=== PATIENT | female | born 1985 | race Caucasian/White ===

== ENCOUNTER → 2016-11-14 | Outpatient (CLI) | payer BC ==
[~2016-11-14] MED LIST: BCPILLS PO; OMEG10007 PO
== END | disposition home or self-care (01) ==
LOC: C.PAPS 12:11
PROVIDERS: ATTEND Obstetrics & Gynecology
DX: Z01.419 Encounter for gynecological examination (general) (routine) without abnormal findings (principal); N87.1 Moderate cervical dysplasia

== ENCOUNTER 2017-01-23 21:02 | Emergency (ER) | payer BC ==
[~2017-01-23] VITALS: Ht 162.6 cm; Wt 59.2 kg
[2017-01-23 21:06] VITALS: TEMP 36.7; Ht 162.6 cm; Wt 59.2 kg
[2017-01-23] MEDS ORDERED: BCPILLS PO (21:25)
[2017-01-23] MEDS ORDERED: OMEG10007 PO (21:25)
[2017-01-23] MEDS ORDERED: RABIES VACCINE (IMOVAX) HUMAN DIPL CELL 2.5 INTER.UNIT/ML SYR IM. ONE (21:30)
[2017-01-23] MEDS ORDERED: RABIES IMMUNE GLOBULIN (HUMAN) 150 INTER.UNIT/ML 2 ML VIAL IM. ONE (21:30)
--- NOTE | 2017-01-23 22:03 | EMERGENCY ROOM VISIT NOTE ---
History First contact with patient: 21:20 Chief Complaint: RABIES VACCINE Stated Complaint: BAT EXPOSURE History of Present Illness The patient is a 31 year old female who presents to the Emergency Room who presents to the Emergency Room for a rabies postexposure prophylaxis series. The patient and spouse awakened in their bedroom with a bat flying around in the house. They do not recall feeling anything in the bed with them. Review of Systems 10 system review was performed and was negative except for pertinent positives and negatives as indicated in history of present illness Past Medical/Surgical History Medical Problems: (1) No significant past medical history Surgical Problems: (1) No history of previous surgery Family History FH: cancer FH: diabetes mellitus FH: heart disease Social History Smoking Status: Never Smoker Current/Historical Medications Scheduled Control Pills ( Control Pills), 1 TAB PO DAILY Fish Oil ([place]-3), 1 CAP PO DAILY Allergies Coded Allergies: No Known Allergies (Unverified , 01/23/17) Physical Exam Vital Signs Date Time Temp Pulse Resp B/P (MAP) Pulse Ox O2 Delivery O2 Flow Rate FiO2 01/23/17 21:06 36.7 73 16 136/91 98 Room Air Physical Exam CONSTITUTIONAL: Healthy and well nourished. HEENT: Normocephalic, atraumatic. Pupils equal, round and reactive. No scleral icterus or conjunctival injection. INTEGUMENTARY: No rash or other significant dermatologic conditions noted. NEUROLOGIC: No focal neurologic deficits noted. Medical Decision & Procedures Medications Administered Medications (Trade) Dose Ordered Sig/Pilar Route Start Time Stop Time Status Last Admin Dose Admin Rabies Vaccine Human Diploid Cell (Imovax Rabies) 2.5 interunit ONCE ONCE IM. 01/23/17 21:30 01/23/17 21:32 DC 01/23/17 21:48 2.5 INTERUNIT Rabies Immune Globulin (Imogam Rabies Inj) 1,184 interunit ONCE ONCE IM. 01/23/17 21:30 01/23/17 21:32 DC 01/23/17 21:47 1,184 INTERUNIT ED Course Patient history and physical exam were performed. Nurse's notes were reviewed. Vital signs were reviewed and were normal. The patient was administered Imovax IM and HRIG 20 units per kilogram IM without adverse reaction. She will return on days 3, 7 and 14 for subsequent Imovax immunizations. She was instructed to return sooner for any adverse reaction. The patient was happy with plan of care, and denied any significant discomfort at the time of discharge. Medical Decision Impression Primary Impression: Need for prophylactic vaccination against rabies Departure Information Dispostion Home / Self-Care Forms HOME CARE DOCUMENTATION FORM, IMPORTANT VISIT INFORMATION Patient Instructions My [facility] Additional Instructions Return on the following days for your remaining Imovax immunizations: Day 3 (01/26) Day 7 (01/30) Day 14 (02/06)
[2017-01-23 22:27] VITALS: BP 127/87; PULSE 65; O2SAT 98
== END 2017-01-23 22:28 | disposition home or self-care (01) ==
LOC: C.EDB 21:03 → C.EDD 22:28
DX: Z20.3 Contact with and (suspected) exposure to rabies (principal); Z23 Encounter for immunization; Z83.3 Family history of diabetes mellitus

== ENCOUNTER 2017-01-26 07:41 | Emergency (ER) | payer BC ==
[~2017-01-26] VITALS: Ht 162.6 cm; Wt 59.0 kg
[2017-01-26 07:45] VITALS: TEMP 36.6; Ht 162.6 cm; Wt 59.0 kg
[2017-01-26] MEDS ORDERED: RABIES VACCINE (IMOVAX) HUMAN DIPL CELL 2.5 INTER.UNIT/ML SYR IM. ONE ×2 (08:00→14:11)
--- NOTE | 2017-01-26 15:00 | EMERGENCY ROOM VISIT NOTE ---
ED Visit Note First contact with patient: 07:50 Chief complaint: Rabies exposure HPI: This 31-year-old white female presents for her next injection of Imovax. This is injection # 2. patient denies any rashes or problems from the last injection. No shortness of breath. Pain is 0/10. Review of systems: Unchanged from previous exam. Surgical history: Unchanged from previous exam. Medical history: Unchanged from previous exam Current medications: Unchanged from previous exam Allergies: Unchanged from previous exam Social history: Unchanged from previous exam. She is a nurse at [employer]. Vitals: Afebrile. Reviewed and filed in patient's chart General: Well-developed, well-nourished, young white female, in no acute distress. They are sitting in a chair. Alert and oriented. Skin:Warm and dry with good turgor. No rashes or lesions. No ecchymosis or erythema. The patient is not diaphoretic. No abrasions. Musculoskeletal: Full motion of the shoulder without discomfort. Impression: Rabies exposure. Plan: Patient was educated regarding today's findings. She was given Imovax 1 ML IM. Patient was monitored for 20 minutes. No adverse changes were noted. Patient was discharged with instructions to follow-up at the next scheduled injection. Tylenol as needed for any discomfort. Benadryl as needed for any itch. Return to the ER for any signs of allergic reaction. Current/Historical Medications Scheduled Control Pills ( Control Pills), 1 TAB PO DAILY Fish Oil ([place]-3), 1 CAP PO DAILY Allergies Coded Allergies: No Known Allergies (Unverified , 01/23/17) Vital Signs Date Time Temp Pulse Resp B/P (MAP) Pulse Ox O2 Delivery O2 Flow Rate FiO2 01/26/17 07:45 36.6 66 18 116/74 99 Room Air Medications Administered Medications (Trade) Dose Ordered Sig/Pilar Route Start Time Stop Time Status Last Admin Dose Admin Rabies Vaccine Human Diploid Cell (Imovax Rabies) 2.5 interunit ONCE ONCE IM. 01/26/17 08:00 01/26/17 08:01 DC 01/26/17 14:19 2.5 INTERUNIT Departure Information Impression Primary Impression: Need for rabies vaccination Dispostion Home / Self-Care Forms BENADRYL USE, WORK / SCHOOL INSTRUCTIONS, HOME CARE DOCUMENTATION FORM, MOTRIN USE, TYLENOL USE , IMPORTANT VISIT INFORMATION Patient Instructions My [facility] Additional Instructions Follow-up in 4 days for your next rabies vaccination Tylenol and Motrin every 6 hours as needed for discomfort Benadryl every 6 hours as needed for itching or redness Return to the ED for any other concerns, or follow-up with your PCP
[2017-01-26 15:09] VITALS: BP 123/91; PULSE 62; O2SAT 98
== END 2017-01-26 15:11 | disposition home or self-care (01) ==
LOC: C.EDB 07:42 → C.EDA 15:11
DX: Z23 Encounter for immunization (principal); Z20.3 Contact with and (suspected) exposure to rabies; Z79.3 Long term (current) use of hormonal contraceptives

== ENCOUNTER 2017-01-30 17:17 | Emergency (ER) | payer BC ==
[~2017-01-30] VITALS: Ht 162.6 cm; Wt 58.7 kg
[2017-01-30 17:21] VITALS: TEMP 36.5; Ht 162.6 cm; Wt 58.7 kg
[2017-01-30] MEDS ORDERED: RABIES VACCINE (IMOVAX) HUMAN DIPL CELL 2.5 INTER.UNIT/ML SYR IM. ONE (17:45)
[2017-01-30 18:21] VITALS: BP 115/72; PULSE 61; O2SAT 99
--- NOTE | 2017-01-31 20:42 | EMERGENCY ROOM VISIT NOTE ---
ED Visit Note First contact with patient: 17:23 CHIEF COMPLAINT: Rabies vaccination. HISTORY OF PRESENT ILLNESS: Ms. Acharya is a 31-year-old white female who ambulates into the ED requesting her third rabies vaccination. Patient reports she has had no reactions to her previous vaccination and she is feeling well today and denies fevers, chills, sweats, headaches, neck pain, joint pain, shortness of breath, cough, upper respiratory tract symptoms, abdominal pain, nausea, vomiting. REVIEW OF SYSTEMS: As noted above in History of Present Illness. PHYSICAL EXAM: Vital Signs: Date Time Temp Pulse Resp B/P (MAP) Pulse Ox O2 Delivery O2 Flow Rate FiO2 01/30/17 18:21 61 20 115/72 99 01/30/17 17:21 36.5 58 20 119/79 99 Room Air GENERAL: 31-year-old white female in no acute distress, nontoxic-appearing, afebrile and hemodynamically stable. NEUROLOGICAL: Awake, alert and oriented to person, place and time. Answering questions appropriately and following commands. EMERGENCY DEPARTMENT COURSE: Patient is assessed as noted above. Patient was given 2.5 IU of rabies vaccination IM. Patient was educated about today's findings and instructed on her treatment plan ; she verbalized understanding and agreement with this plan. CLINICAL IMPRESSION: Post exposure rabies prophylaxis. DISPOSITION: Patient discharged to home in stable condition; prior to discharge he was reassessed and reported that he felt the same.. PLAN: Patient was educated on symptoms of rabies and side effect of rabies immunizations. Patient was encouraged to continue her current schedule for her last rabies immunization. Patient was encouraged to return the ED for any symptoms of rabies or side effects of rabies immunizations.
== END 2017-01-30 18:23 | disposition home or self-care (01) ==
LOC: C.EDB 17:18 → C.EDD 18:23
DX: Z23 Encounter for immunization (principal); Z20.3 Contact with and (suspected) exposure to rabies

== ENCOUNTER 2017-02-07 16:54 | Emergency (ER) | payer BC ==
[~2017-02-07] VITALS: Ht 160 cm; Wt 57.7 kg
[2017-02-07 16:58] VITALS: TEMP 36.6; Ht 160 cm; Wt 57.7 kg
[2017-02-07] MEDS ORDERED: RABIES VACCINE (IMOVAX) HUMAN DIPL CELL 2.5 INTER.UNIT/ML SYR IM. ONE (17:30)
[2017-02-07 17:52] VITALS: BP 114/78; PULSE 65; O2SAT 98
--- NOTE | 2017-02-07 19:55 | EMERGENCY ROOM VISIT NOTE ---
History First contact with patient: 17:16 Chief Complaint: RABIES VACCINE REPEAT VISIT Stated Complaint: RABIES VACCINE REPEAT History of Present Illness The patient is a 31 year old female who presents to the Emergency Room for her fourth and final Imovax injection after being exposed to a bat in her home. The patient denies any adverse reactions from prior injections. Review of Systems 6 system review was performed and was negative except for pertinent positives and negatives as indicated in history of present illness Past Medical/Surgical History Medical Problems: (1) No significant past medical history Surgical Problems: (1) No history of previous surgery Family History FH: cancer FH: diabetes mellitus FH: heart disease Social History Smoking Status: Never Smoker Alcohol Use: occasionally Marital Status: Housing Status: lives with family Occupation Status: employed Current/Historical Medications Scheduled Control Pills ( Control Pills), 1 TAB PO DAILY Fish Oil ([place]-3), 1 CAP PO DAILY Physical Exam Vital Signs Date Time Temp Pulse Resp B/P (MAP) Pulse Ox O2 Delivery O2 Flow Rate FiO2 02/07/17 17:52 65 15 114/78 98 02/07/17 16:58 36.6 65 15 114/78 98 Room Air Pain Rating (0-10): 0 Physical Exam CONSTITUTIONAL: Healthy and well nourished. HEENT: No scleral icterus or conjunctival injection. INTEGUMENTARY: No rash or other significant dermatologic conditions noted. NEUROLOGIC: No focal neurologic deficits noted. Medical Decision & Procedures Medications Administered Medications (Trade) Dose Ordered Sig/Pilar Route Start Time Stop Time Status Last Admin Dose Admin Rabies Vaccine Human Diploid Cell (Imovax Rabies) 2.5 interunit ONCE ONCE IM. 02/07/17 17:30 02/07/17 17:34 DC 02/07/17 17:35 2.5 INTERUNIT ED Course Patient history and physical exam were performed. Nurse's notes were reviewed. Vital signs were reviewed and normal. The patient was administered Imovax IM without adverse reaction. The patient was advised that if she has any potential rabies exposure in the future, she should advise her healthcare provider that she has already undergone this immunization series. The patient was happy with plan of care, and denied any pain at the time of discharge. Medical Decision Blood Pressure Screening Patient's blood pressure: Normal blood pressure Impression Primary Impression: Need for prophylactic vaccination against rabies Departure Information Dispostion Home / Self-Care Condition GOOD Forms HOME CARE DOCUMENTATION FORM, IMPORTANT VISIT INFORMATION Patient Instructions My [facility] Additional Instructions If you have any potential rabies exposure in the future, advise your healthcare provider that you have already undergone this rabies immunization series.
== END 2017-02-07 17:53 | disposition home or self-care (01) ==
LOC: C.EDB 16:56 → C.EDD 17:53
DX: Z20.3 Contact with and (suspected) exposure to rabies (principal); Z23 Encounter for immunization

== ENCOUNTER 2018-01-13 17:46 | Emergency (ER) | payer OTHER ==
[~2018-01-13] VITALS: Ht 162.6 cm; Wt 60.6 kg
[2018-01-13 18:07] VITALS: TEMP 36.7; Ht 162.6 cm; Wt 60.6 kg
--- NOTE | 2018-01-13 18:24 | EMERGENCY ROOM VISIT NOTE ---
ED Visit Note First contact with patient: 18:11 CHIEF COMPLAINT: Bat exposure, rabies booster HISTORY OF PRESENT ILLNESS: This 32-year-old female patient presents to the emergency department, ambulatory, complaining of exposure to a bat in the bedroom. The patient states she awoke 2 nights ago and found a bat. She denies any known bite or scratch. She experienced the same situation one year ago when she was fully vaccinated with immunoglobulin at that time. The patient denies any current symptoms or complaints. REVIEW OF SYSTEMS: A 6 system review of systems was completed with positives and pertinent negatives listed in the HPI. ALLERGIES: None MEDICATIONS: OCPs PMH: None. SOCIAL HISTORY: The patient lives locally with family. She denies drug, tobacco use. She does report to occasional alcohol use. PHYSICAL EXAM: Vital Signs: Reviewed Nurse's notes, vital signs stable. GENERAL : This is a 32-year-old white female, in no acute distress, well-developed, well -nourished. HEAD: Atraumatic, without temporal or scalp tenderness. EYES: PERRLA, EOMI, no discharge or injection. SKIN: [place], warm, dry. No rashes, ecchymosis, cyanosis, or open wounds noted. Capillary refill less than 2 seconds. HEART: Regular rate and rhythm. No murmurs, gallops, or rubs. LUNGS : CTA bilaterally. No wheezes, rhonchi, rales. NEUROLOGICAL: Alert and oriented to person place and time. Normal sensation to light and sharp touch. MUSCULOSKELETAL: Motor functions grossly intact of the bilateral upper and lower extremities. Full range of motion. There is no tenderness diffusely. EMERGENCY DEPARTMENT COURSE: I examined the patient. The patient was given Imovax 1ml IM. The patient has been previously vaccinated, so will not require Imogam. I discussed with the patient that she would receive her first vaccination today and would need her second vaccination in 3 days. The patient verbalized agreement and understanding. The patient was observed for 20 minutes with no reaction. The patient was discharged home in stable condition. I attest that I have personally reviewed the patient's current medication list. Patient was found to have normal blood pressure on screening and does not require follow-up. DIAGNOSIS: Rabies prophylaxis The chart was completed utilizing [employer] voice recognition software. Grammatical errors, random word insertions, pronoun errors, and incomplete sentences are an occasional consequence of this system due to software limitations, ambient noise, and hardware issues. Any formal questions or concerns about the content, text, or information contained within the body of this dictation should be directly addressed to the provider for clarification. Current/Historical Medications Scheduled Control Pills ( Control Pills), 1 TAB PO DAILY Fish Oil ([place]-3), 1 CAP PO DAILY Allergies Coded Allergies: No Known Allergies (Unverified , 02/07/17) Vital Signs Date Time Temp Pulse Resp B/P (MAP) Pulse Ox O2 Delivery O2 Flow Rate FiO2 01/13/18 18:47 65 18 127/71 96 01/13/18 18:07 36.7 62 17 136/79 95 Room Air Medications Administered Medications (Trade) Dose Ordered Sig/Pilar Route Start Time Stop Time Status Last Admin Dose Admin Rabies Vaccine Human Diploid Cell (Imovax Rabies) 2.5 interunit ONCE ONCE IM. 01/13/18 18:30 01/13/18 18:31 DC 01/13/18 18:44 2.5 INTERUNIT Departure Information Impression Primary Impression: Exposure to bat without known bite Additional Impression: Need for prophylactic vaccination against rabies Dispostion Home / Self-Care Condition GOOD Referrals Niranjan Lowe M.D. (PCP) Patient Instructions My [facility], Rabies Additional Instructions You were seen in the emergency department today for a rabies vaccination. As discussed, because you have been previously vaccinated, you will only need to receive 2 doses of the rabies vaccination. You do not need repeat doses of the immunoglobulin. Today is day 0. Return on day 3 for your second and final vaccination. Return sooner for any adverse reactions to the vaccination or for other concerning symptoms. Problem Qualifiers
[2018-01-13] MEDS ORDERED: RABIES VACCINE (IMOVAX) HUMAN DIPL CELL 2.5 INTER.UNIT/ML SYR IM. ONE (18:30)
[2018-01-13 18:47] VITALS: BP 127/71; PULSE 65; O2SAT 96
== END 2018-01-13 18:47 | disposition home or self-care (01) ==
LOC: C.EDB 17:48 → C.EDD 18:47
DX: Z20.3 Contact with and (suspected) exposure to rabies (principal); Z23 Encounter for immunization; Z79.3 Long term (current) use of hormonal contraceptives

== ENCOUNTER 2018-01-17 12:57 | Emergency (ER) | payer OTHER ==
[~2018-01-17] VITALS: Ht 162.6 cm; Wt 60.6 kg
[2018-01-17 13:05] VITALS: TEMP 36.3; Ht 162.6 cm; Wt 60.6 kg
--- NOTE | 2018-01-17 13:27 | EMERGENCY ROOM VISIT NOTE ---
ED Visit Note First contact with patient: 13:23 CHIEF COMPLAINT: "Need second rabies shot". HISTORY OF PRESENT ILLNESS: This 32-year-old female patient presents to the emergency department via private vehicle for their second and final rabies immunization, as they had already completed the series in the past and note this is just for the booster. The patient has not had any complications from the previous injections. They deny any other complaints. REVIEW OF SYSTEMS: A 6 system review of systems was completed with positives and pertinent negatives listed in the HPI. ALLERGIES: None MEDICATIONS: As noted below PMH: Unchanged from previous visit. PHYSICAL EXAM: Vital Signs: Reviewed Nurse's notes, vital signs stable. GENERAL : 32-year-old female, in no acute distress, well-developed, well-nourished. HEAD: NEUROLOGICAL: Alert and cooperative. Sensory and motor functions grossly intact. EMERGENCY DEPARTMENT COURSE: I examined the patient. The patient was given 2.5 IU of Imovax/1ml IM. The patient was observed with no reaction. The patient was discharged home in stable condition. Current/Historical Medications Scheduled Control Pills ( Control Pills), 1 TAB PO DAILY Fish Oil ([place]-3), 1 CAP PO DAILY Allergies Coded Allergies: No Known Allergies (Unverified , 02/07/17) Vital Signs Date Time Temp Pulse Resp B/P (MAP) Pulse Ox O2 Delivery O2 Flow Rate FiO2 01/17/18 13:52 69 16 127/79 100 01/17/18 13:05 36.3 80 18 121/77 98 Room Air Medications Administered Medications (Trade) Dose Ordered Sig/Pilar Route Start Time Stop Time Status Last Admin Dose Admin Rabies Vaccine Human Diploid Cell (Imovax Rabies) 2.5 interunit ONCE ONCE IM. 01/17/18 13:30 01/17/18 13:31 DC 01/17/18 13:46 2.5 INTERUNIT Departure Information Impression Primary Impression: Need for prophylactic vaccination against rabies Dispostion Home / Self-Care Condition GOOD Referrals Niranjan Lowe M.D. (PCP) Patient Instructions My [facility] Additional Instructions You were seen in the emergency department for the second, and final booster immunization for this exposure. Please watch for any fevers, chills, redness or swelling. If these develop please return. Please return with any new/concerning symptoms
[2018-01-17] MEDS ORDERED: RABIES VACCINE (IMOVAX) HUMAN DIPL CELL 2.5 INTER.UNIT/ML SYR IM. ONE (13:30)
[2018-01-17 13:52] VITALS: BP 127/79; PULSE 69; O2SAT 100
== END 2018-01-17 13:50 | disposition home or self-care (01) ==
LOC: C.EDB 12:58 → C.EDD 13:50
DX: Z20.3 Contact with and (suspected) exposure to rabies (principal); Z23 Encounter for immunization